=== PATIENT | female | born 1955 | race Caucasian/White ===

== ENCOUNTER 2018-02-28 12:47 | Outpatient (CLI) | payer BC | END 2018-02-28 12:48 | disposition home or self-care (01) | LOC: BICMAMMO 12:47 | PROVIDERS: ATTEND Family Medicine | DX: Z12.31 Encounter for screening mammogram for malignant neoplasm of breast (principal) | CPT/HCPCS: 77063; 77067 ==

== ENCOUNTER 2023-01-26 14:16 | Outpatient (CLI) | payer MEDICARE, OTHER | END 2023-01-26 14:17 | disposition home or self-care (01) | LOC: ULT 14:16 | PROVIDERS: ATTEND Nurse Practitioner Family | DX: R39.14 Feeling of incomplete bladder emptying (principal); N39.0 Urinary tract infection, site not specified | CPT/HCPCS: 76856 ==

== ENCOUNTER 2024-05-09 10:46 | Outpatient (CLI) | payer MEDICARE | END 2024-05-09 10:47 | disposition home or self-care (01) | LOC: BICMAMMO 10:46 | PROVIDERS: ATTEND Family Medicine | DX: Z12.31 Encounter for screening mammogram for malignant neoplasm of breast (principal) | CPT/HCPCS: 77063; 77067 ==